=== PATIENT | male | born 1965 | race Caucasian/White ===

== ENCOUNTER 2020-04-22 07:12 | Day surgery (SDC) | payer BC ==
[2020-04-22] MEDS ORDERED: LACTATED RINGERS 1,000 ML IVS ONE (09:10)
[2020-04-22] MEDS ORDERED: BUPIVACAINE 0.5% W/EPI 30 ML VIAL INJ ONE (09:49)
[2020-04-22] MEDS ORDERED: PROPOFOL 200 MG/20 ML VIAL IV ONE (10:00)
[2020-04-22] MEDS ORDERED: LIDOCAINE 1% 10 ML VIAL INJ ONE (10:00)
[2020-04-22 10:59] VITALS: BP 117/65; TEMP 97.7; O2SAT 95
--- NOTE | 2020-04-22 11:55 | OP ---
DATE OF PROCEDURE: 04/22/20 PREOPERATIVE DIAGNOSIS: 1. Rectal bleeding. 2. Hemorrhoids. 3. Screening colonoscopy. POSTOPERATIVE DIAGNOSIS: 1. Rectal bleeding. 2. Hemorrhoids. 3. Screening colonoscopy. PROCEDURE: 1. Colonoscopy with mucosal biopsy, ascending, and polyp biopsy at 28 cm. SURGEON: Rui Reyes MD ANESTHESIA: General. FINDINGS: There was approximately 2.5 to 3 cm polyp at about 30 cm. It had a very wide base, unable to be removed with a snare and also difficult to get good biopsies, but biopsies were taken. In the ascending colon, there was an area of stippled mucosa that looked abnormal. Biopsies were taken. COMPLICATIONS: None. ESTIMATED BLOOD LOSS: Minimal. PLAN: Discharge. Followup biopsies. Surgery likely. INDICATION: As stated. PROCEDURE: General anesthesia was induced in the lateral position. Digital rectal exam was normal. The colonoscope was inserted. At about the 30 cm irma, we noticed the mass, but proceeded along it. There was some blood in this area. It was not actively bleeding. We reached the cecum. Upon withdrawal, a portion of the ascending colon had multiple irregular spots with white edges and red center. This was in about a 6 to 8 cm stretch. Biopsies were taken of this. On withdrawal, no additional polyps were seen until we were at precisely 28 cm. At that point, we attempted a snare over the lesion, but it was too large for the snare to go around or catch the edges. We had to do forceps biopsy and with the firmness of the tumor, it was not a stalk, but a very wide base. We took biopsies, but on the very surface. It was difficult to get the biopsies of this polyp with multiple attempts. We then marked it with methylene blue dye at a single spot right on its base. The scope was withdrawn. Retroflexion showed internal hemorrhoids x2 with no stigmata of recent bleed. The patient tolerated the procedure and was taken to Recovery to be discharged. He will followup with the biopsy results and we will make further recommendations. #[id number] cc: Rui Becerra MD [facility]
== END 2020-04-22 12:23 | disposition home or self-care (01) ==
LOC: AMB 07:12
PROVIDERS: ATTEND Surgery
DX: R19.5 Other fecal abnormalities (principal); K52.9 Noninfective gastroenteritis and colitis, unspecified; D12.6 Benign neoplasm of colon, unspecified
CPT/HCPCS: 00811; 45380; J3490; J7120

== ENCOUNTER → 2020-06-10 | Outpatient (CLI) | payer BC | LOC: GMAJ 15:41 | PROVIDERS: ATTEND Family Medicine | DX: Z79.899 Other long term (current) drug therapy (principal); Z12.5 Encounter for screening for malignant neoplasm of prostate; Z13.29 Encounter for screening for other suspected endocrine disorder ==

== ENCOUNTER → 2020-09-06 | Outpatient (CLI) | payer BC ==
--- NOTE | 2020-09-06 17:39 | CT ---
EXAMS DESCRIPTION: CT chest with contrast CT ABDOMEN AND PELVIS WITH CONTRAST CLINICAL HISTORY: MALIGNANT NEOPLASM OF THE SIGMOID COLON COMPARISON: None Available. TECHNIQUE: CT of the chest, abdomen and pelvis are performed during IV bolus administration of 100 mL of Isovue 300. No oral contrast. FINDINGS: CT chest with contrast The lungs appear clear. No infiltrate or nodule. Intrapulmonary lymph node incidentally noted in the inferior right major fissure. No mediastinal mass or adenopathy. Normal enhancement of cardiac chambers, mediastinal vessels in the pulmonary arteries and veins. No chest wall mass. No lower cervical or supraclavicular or axillary adenopathy. Bone window images are negative for fracture or lytic lesion. No bony destructive lesion. The clinical history is sigmoid neoplasm. No evidence of thoracic metastatic disease. Coronal and sagittal reformatted images confirm the findings. Accentuated kyphosis due to thoracic vertebral wedging. CT abdomen Small cyst in the lower pole the right kidney. Nonobstructing calculus in the lower calyx of the left kidney measures 4 mm. Tiny cyst in the liver. The liver, spleen, pancreas, gallbladder, adrenal glands, stomach and kidneys are otherwise unremarkable in appearance. No inflammation around the pancreas. No renal stones or hydronephrosis. No bowel dilatation to suggest obstruction. No free air or free fluid. CT pelvis Appendix appears normal. No inflammation around the cecum or terminal ileum or sigmoid colon. Bowel anastomotic staple line in the region of the sigmoid colon consistent with previous partial sigmoidectomy. Scarring in the left lower abdomen with deformity of the left lower abdominal wall musculature consistent with the previous presence of a colostomy which has been taken down and the findings are consistent with mild chronic scarring after healing. Bladder and distal ureters are negative for stones. Normal enhancement of pelvic vessels. No inguinal or lower pelvic adenopathy. Prominent prostate with internal coarse calcification measures 4.4 cm in transverse dimension. Bone window images are negative for bony destructive lesion of the lower ribs, lumbar spine, bony pelvis or proximal femurs. Bone window images are negative for fracture or lytic lesion. Coronal and sagittal reformatted images confirm the findings. Delayed images show normal contrast accumulation in the urinary collecting systems. Minimal contrast in the urinary bladder. IMPRESSION: Previous partial sigmoidectomy with no evidence of locally recurrent tumor or distant metastatic disease in the abdomen or pelvis. This exam was performed according to our departmental dose-optimization program, which includes automated exposure control, adjustment of the mA and/or kV according to patient size and/or use of iterative reconstruction technique. Total DLP equals 2494.72 mGycm. Electronically signed by: Jason Ramos MD 09/06/2020 5:37 PM [facility]
== END ==
LOC: CT 13:10
PROVIDERS: ATTEND Internal Medicine Hematology & Oncology
DX: Z01.812 Encounter for preprocedural laboratory examination (principal); C18.7 Malignant neoplasm of sigmoid colon; Z90.49 Acquired absence of other specified parts of digestive tract; Z98.890 Other specified postprocedural states